=== PATIENT | female | born 1990 | race African-American/Black ===

== ENCOUNTER 2017-06-08 06:29 | Day surgery (SDC) | payer SELFPAY ==
[2017-05-29 13:18] VITALS: BMI 19.6
[2017-06-08] MEDS ORDERED: LIDOCAINE HCL 1%, 10 MG/ML (20ML VIAL) NR ONE (09:17)
[2017-06-08] MEDS ORDERED: EPINEPHrine 1:1,000 1 MG/1 ML - 30ML VIAL (INJECTION) SQ ONE (09:18)
[2017-06-08] MEDS ORDERED: NEOSTIGMINE METHYLSULFATE 0.5 MG/ML - 10 ML MDV ONE (11:58)
[2017-06-08] MEDS ORDERED: ONDANSETRON 4 MG/2 ML VIAL ONE (12:03)
[2017-06-08] MEDS ORDERED: LIDOCAINE HCL/PF 2% SDV 5ML VIAL ONE (12:03)
[2017-06-08] MEDS ORDERED: KETOROLAC TROMETHAMINE 30 MG/1 ML VIAL ONE (12:03)
[2017-06-08] MEDS ORDERED: DEXAMETHASONE SOD PHOSPHATE 4 MG/1 ML VIAL ONE (12:03)
[2017-06-08] MEDS ORDERED: LIDOCAINE HCL 2% JELLY (5 ML/TUBE) ONE (12:03)
[2017-06-08] MEDS ORDERED: ceFAZolin SODIUM 1 GM VIAL ONE (12:03)
[2017-06-08] MEDS ORDERED: GLYCOPYRROLATE 0.2 MG/1 ML VIAL ONE (12:06)
[2017-06-08] MEDS ORDERED: BACITRACIN 15 GM TUBE TOPICAL OINTMENT ONE (12:33)
[2017-06-08] MEDS ORDERED: ESMOLOL HCL 100,000 MCG/10 ML VIAL ONE (13:11)
[2017-06-08] MEDS ORDERED: oxyCODONE HCL 5 MG TABLET PO PRN ×4 (13:29→13:41)
[2017-06-08] MEDS ORDERED: PROMETHAZINE HCL 25 MG/1 ML VIAL IVPUSH PRN (13:29)
[2017-06-08] MEDS ORDERED: ACETAMINOPHEN 325 MG TABLET (FP) PO PRN (13:29)
[2017-06-08] MEDS ORDERED: ONDANSETRON 4 MG/2 ML VIAL IVPUSH PRN (13:29)
[2017-06-08] MEDS ORDERED: LACTATED RINGERS SOLUTION 1,000 ML IV SCH ×2 (13:30→13:45)
[2017-06-08] MEDS ORDERED: ONDANSETRON 4 MG/2 ML VIAL IVPB PRN (13:41)
[2017-06-08] MEDS ORDERED: oxyCODONE HCL 5 MG TABLET ONE (14:54)
[2017-06-08] MEDS ORDERED: PROMETHAZINE HCL 25 MG/1 ML VIAL ONE (15:57)
[2017-06-08 19:26] VITALS: BP 108/67; PULSE 85; TEMP 98.3
--- NOTE | 2017-06-12 13:40 | PATH ---
Surgical Pathology Report Patient Name: MISHA ANDRADE Med. Rec. #: [id number] /Age/Gender: 1990 (Age: 26) / F Account: [id number] Location: [facility] AMBULATORY Taken: 06/08/2017 Received: 06/11/2017 Reported: 06/12/2017 Physicians: Genaro Castanon Specimen(s) Received A: RIGHT BREAST TISSUE B: LEFT BERAST TISSUE Clinical History Cosmetic Final Diagnosis A. BREAST TISSUE, RIGHT, REDUCTION: BENIGN BREAST TISSUE SHOWING FIBROADENOMATOID CHANGES. SKIN WITH NO PATHOLOGIC FINDINGS. B. BREAST TISSUE, LEFT, REDUCTION: BENIGN BREAST TISSUE SHOWING FIBROADENOMATOID CHANGES. SKIN WITH NO PATHOLOGIC FINDINGS. Electronically Signed Marilyn Deras M.D. Gross Description A. Received in formalin labeled "right breast tissue," is a 537 g, 16.5 x 16.0 x 4.0 cm aggregate of multiple irregular, unoriented portions of fibroadipose tissue and xie-brown, unremarkable skin. Sectioning reveals abundant dense, white, firm fibrous tissue. Clinical Appeals Specialist sections are submitted in 6 cassettes. B. Received in formalin labeled "left breast tissue," is a 490 g, 16.0 x 15.0 x 4.0 cm aggregate of multiple irregular, unoriented portions of fibroadipose tissue and xie-brown, unremarkable skin. Sectioning reveals abundant dense, white, firm fibrous tissue. Clinical Appeals Specialist sections are submitted in 6 cassettes. DL/06/11/2017 saudi06/11/2017
== END 2017-06-08 18:50 | disposition home or self-care (01) ==
LOC: FASU 06:29
PROVIDERS: ATTEND Plastic Surgery
CPT/HCPCS: 84703; 88305-TC; 94760